=== PATIENT | male | born 1985 | race Caucasian/White ===

== ENCOUNTER 2020-07-13 08:50 | Emergency (ER) | payer OTHER, SELFPAY ==
[2020-07-13 09:49] VITALS: BP 142/96; PULSE 110; RESP 18; TEMP 36.7; O2SAT 99; BMI 38.7
--- NOTE | 2020-07-13 09:52 | XR_ITS ---
EXAMINATION: XR HAND, RIGHT CLINICAL INFORMATION: Right thumb laceration, status post breaking up dog fight. COMPARISON: None TECHNIQUE: PA, lateral, and oblique views of the right hand. FINDINGS: The bones and soft tissues are normal. No fracture. Alignment is anatomic. Joint spaces are maintained. No erosions or soft tissue calcifications. XR/XR hand RT min 3V IMPRESSION: Unremarkable right hand exam
--- NOTE | 2020-07-13 09:57 | ED.EXTPRO ---
HPI - Extremity Problem General Chief complaint: Extremity Injury, Upper Stated complaint: laceration rt hand Time Seen by Provider: 07/13/20 09:52 Source: patient Mode of arrival: ambulatory History of Present Illness HPI Narrative: 35-year-old male presenting to ED complaining of laceration to right thumb s/p breaking up his dogs from fighting this morning around 6:30 a.m. tetanus not up-to-date. Denies injury to other area. Reports mild associated numbness. Denies fever, chills, decreased ROM. Denies suspected foreign body, weakness, fever/chills Onset (ago): hour(s) Location: right Related Data Previous Rx's Medication Instructions Recorded amoxicillin-pot clavulanate 1 tab PO Q12H 7 Days #14 tab 07/13/20 [Augmentin] Allergies Allergy/AdvReac Type Severity Reaction Status Date / Time No Known Drug Allergies Allergy Mild NONE Unverified 05/05/20 15:41 [NO KNOWN DRUG ALLERGIES] Review of Systems Review of Systems: Constitutional: No Weight loss, No Fever, No Chills Musculoskeletal: + joint pain, No Myalgias, + Joint Swelling Skin: No Skin Lesions, +laceration Neuro: No Weakness, + Numbness, No Paresthesias PMFSH Past Medical History Attestation statement: The following information was validated with the patient. Medical History (Updated 07/13/20 @ 10:03 by EVERARDO Rodriguez) HTN (hypertension) Social History Social History Alcohol intake: current Alcohol intake frequency: holidays/special occasions only Smoking Status: Never smoker Use of substances other than those prescribed or required for medical reasons: No Advance Directives: No Advance Directives Information Provided: No Physical Exam Vital Signs: Vital Signs: Last Vital Signs Temp 98.0 F 07/13/20 09:49 Pulse 110 H 07/13/20 09:49 Resp 18 07/13/20 09:49 BP 142/96 H 07/13/20 09:49 Pulse Ox 99 07/13/20 09:49 Body Mass Index 38.7 Const: General: cooperative and healthy appearing Orientation/consciousness: patient oriented x3 Limitations: no limitations HENMT: Head: Yes normal to inspection Ears: hearing grossly normal bilaterally General nose exam: Normal external nose present Face and sinus: Yes normal facial exam Eyes: General: appearance normal, both eyes and all related structures EOM: EOMs intact bilaterally Neck: Neck: Yes normal visual inspection Cardio: Peripheral pulses: radial pulses present Skin: Other: +4cm deep laceration to palmar aspect R thumb. Small laceration to lateral R thumb nail. Nailbed intact. No subungal hematoma Neuro: General: patient oriented x3 Gait exam (Neuro): Normal gait present Extrem: Other: FROM right thumb intact. sensation intact to light touch General: Yes normal to inspection Procedures Laceration Laceration 1: Site: hand Side (If applicable): right Size (cm): 4 Description: irregular Depth: simple, single layer Local Anesthetic: lidocaine 1% Amount of anesthesia used (mL): 5 Pre-repair: wound explored, irrigated extensively and wound margins revised Skin layer closed with: nylon Size (cm): 4-0 Number of sutures: 9 Technique: simple, interrupted Discharge Plan Discharge Clinical Impression: Laceration Dog bite of finger Qualifiers: Encounter type: initial encounter Qualified Code(s): S61.259A - Open bite of unspecified finger without damage to nail, initial encounter Patient Disposition: Home, Self-Care Instructions: Animal Bite (ED), Finger Laceration (ED) Additional Instructions: DO NOT GET STITCHES WET FOR 24 HOURS AFTER 24 HOURS YOU MAY GET WET, BUT ONLY PAT DRY, DO NOT SCRUB KEEP AREA DRY AND CLEAN RETURN TO THE ED IN 7-10 DAYS TO HAVE STITCHES TAKEN OUT YOU MAY APPLY BACITRACIN/NEOSPORIN AT HOME IN ADDITION YOU NEED TO START TAKING PRESCRIBED ANTIBIOTIC, AUGMENTIN, DUE TO DOG BITE DOG BITES HAVE HIGH LIKELIHOOD OF GETTING INFECTED, KEEP CLOSE EYE ON WOUND. IF BEGINS TO LOOK RED, INFLAMED, THERE IS DRAINAGE, YOU FEVER, OR RED STREAKING RETURN TO THE ED FOLLOW-UP WITH HAND SURGEON NEEDED AND YOUR PRIMARY CARE DOCTOR Prescriptions: New amoxicillin-pot clavulanate [Augmentin] 875-125 mg tablet 1 tab PO Q12H 7 Days Qty: 14 RF: 0 Referrals: Eva Berry MD [Physician] - 1 week
[2020-07-13] MEDS: Amoxicillin/Potassium Clav 875 MG TABLET PO (10:02)
[2020-07-13] MEDS: Lidocaine HCl 1 % MPF 5 ML VIAL SUBCUT ×2 (10:02)
--- NOTE | 2020-07-13 10:08 | PC.NURSE ---
pt wound cleaned w ns and splash cover. no pain noted during cleaning. pt ambulated to and from xray w steady gait. medicated per emar.
--- NOTE | 2020-07-13 11:02 | PC.NURSE ---
xrays clear, provider at bedside to close lac.
== END 2020-07-13 11:26 | disposition home or self-care (01) ==
PROVIDERS: Emergency Provider Internal Medicine; PCP Internal Medicine
DX: S61.411A Laceration without foreign body of right hand, initial encounter (principal); S61.259A Open bite of unspecified finger without damage to nail, initial encounter; S60.511A Abrasion of right hand, initial encounter; W54.0XXA Bitten by dog, initial encounter; Y93.9 Activity, unspecified; Y92.9 Unspecified place or not applicable; Y99.9 Unspecified external cause status
CPT/HCPCS: 12002; 73130; 90471; 90715; 99283; 99284